=== PATIENT | male | born 1980 | race Caucasian/White ===

== ENCOUNTER → 2024-05-04 | Outpatient (CLI) | payer BC ==
--- NOTE | 2024-05-05 10:56 | CA ---
Transthoracic Echo Report Name: Serjio iEsenberg Age: 43 Gender: M : 1980 Exam Date: 05/04/2024 17:53 Exam Location: [place] [facility] Ht (in): 73 Wt (lb): 198 Ordering Physician: Eliceo Tapia MD Attending/Referring Phys: Director [employer] Ewelina Carmichael RDCS Procedure CPT: Indications: R07.09 Cardiac Hx: Technical Quality: Good Contrast 1: Total Dose (mL): Contrast 2: Total Dose (mL): MEASUREMENTS (Male / Female) Normal Values 2D ECHO LV Diastolic Diameter PLAX 5.5 cm 4.2 - 5.9 / 3.9 - 5.3 cm LV Systolic Diameter PLAX 4.2 cm IVS Diastolic Thickness 1.0 cm 0.6 - 1.0 / 0.6 - 0.9 cm LVPW Diastolic Thickness 1.0 cm 0.6 - 1.0 / 0.6 - 0.9 cm LV Relative Wall Thickness 0.4 RV Internal Dim ED PLAX 3.6 cm LA Systolic Diameter LX 3.7 cm 3.0 - 4.0 / 2.7 - 3.8 cm LV Diastolic Volume MOD 4C 111.4 cm??? LV Systolic Volume MOD 4C 57.2 cm??? LV Ejection Fraction MOD 4C 48.7 % LV Cardiac Index MOD 4C 1481.9 cm???/min???m??? LV Diastolic Length 4C 7.7 cm LV Systolic Length 4C 6.2 cm LV Diastolic Volume MOD 2C 129.2 cm??? LV Systolic Volume MOD 2C 43.1 cm??? LV Ejection Fraction MOD 2C 66.6 % LV Cardiac Index MOD 2C 2350.5 cm???/min???m??? LV Diastolic Length 2C 8.5 cm LV Systolic Length 2C 6.6 cm M-MODE Aortic Root Diameter MM 3.3 cm LA Systolic Diameter MM 2.5 cm LA Ao Ratio MM 0.8 DOPPLER Mitral E Point Velocity 74.5 cm/s Mitral A Point Velocity 60.0 cm/s Mitral E to A Ratio 1.2 MV Deceleration Time 244.5 ms MV E' Velocity 9.4 cm/s Mitral E to MV E' Ratio 7.9 FINDINGS Left Ventricle Left ventricular ejection fraction is estimated at 55-60 %. Left ventricular cavity size normal. Left ventricular wall thickness normal. Normal left ventricular wall motion. Right Ventricle Mild right ventricular dilatation. Unable to estimate the right ventricular systolic pressure. Right Atrium Normal right atrial size. No right atrial thrombus or mass seen. Left Atrium Normal left atrial size. No left atrial thrombus or mass present. Mitral Valve Structurally normal mitral valve. Trace to mild mitral regurgitation. Aortic Valve Trileaflet aortic valve. No aortic valve stenosis or regurgitation. Tricuspid Valve Structurally normal tricuspid valve. No tricuspid stenosis, regurgitation or prolapse. Pulmonic Valve Structurally normal pulmonic valve. No pulmonic regurgitation. Pericardium No pericardial or pleural effusion. Aorta Normal size aortic root and proximal ascending aorta. CONCLUSIONS Normal LV systolic function Previewed by: Dr. Eliot Valdes MD (Electronically Signed) Final Date: 05 May 2024 10:55
== END | disposition home or self-care (01) ==
LOC: RADECHMAIN 17:39
PROVIDERS: ATTEND Family Medicine
DX: R07.9 Chest pain, unspecified (principal)
CPT/HCPCS: 93306